=== PATIENT | female | born 1945 | race African-American/Black ===

== ENCOUNTER 2016-10-20 17:06 | Emergency (ER) | payer OTHER, MEDICARE ==
[~2016-10-20] VITALS: Ht 177.8 cm; Wt 76.7 kg
[2016-10-20 17:21] VITALS: BP 163/86
[2016-10-20] MEDS ORDERED: IBUP-1060 PO (17:35)
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
== END 2016-10-20 17:48 | disposition home or self-care (01) ==
LOC: ER 17:06
DX: M54.6 Pain in thoracic spine (principal); I10 Essential (primary) hypertension; E78.00 Pure hypercholesterolemia, unspecified; V43.52XA Car driver injured in collision with other type car in traffic accident, initial encounter; Y93.I9 Activity, other involving external motion; Y92.410 Unspecified street and highway as the place of occurrence of the external cause; Y99.8 Other external cause status
CPT/HCPCS: 99282

== ENCOUNTER → 2016-10-30 | Outpatient (CLI) | payer OTHER, MEDICARE ==
[2016-10-20 17:21] VITALS: BP 163/86
[~2016-10-30] MED LIST: IBUP-1060 PO
--- NOTE | 2016-10-30 14:51 | KCIC ---
CERVICAL SPINE 5V History: Strain of muscle on the left side, left shoulder pain Comparison: None. Findings: 5 views of the cervical spine are submitted. Cervical vertebral body stature is adequate. There is moderate to severe degenerative disc disease C6-7, to lesser degree C5-6. There is spondylosis greatest C5-C6 and C6-7 and also C3-4. There is negligible anterior spondylolisthesis C5-6. There is multilevel facet and uncovertebral degenerative change. There is adequate alignment of the lateral masses of C1 relative to C2. There is neural foramina compromise greatest on the left C3-4 to C5-6 and on the right at C5-4. Impression: 1. There is degenerative disc disease greatest at C6-7 and to lesser degree at C5-C6. There is multilevel spondylosis. There is multilevel facet and uncovertebral degenerative change, multilevel neural foramina compromise greater on the left. Electronically signed by: Lul Barrow MD (10/30/2016 2:48 PM) [id number]
== END | disposition home or self-care (01) ==
LOC: KCIC 13:05
PROVIDERS: ATTEND Chiropractor
DX: M50.323 Other cervical disc degeneration at C6-C7 level (principal); M50.321 Other cervical disc degeneration at C4-C5 level; M47.892 Other spondylosis, cervical region; M25.512 Pain in left shoulder
CPT/HCPCS: 72050